=== PATIENT | male | born 1975 | race Two or more races ===

== ENCOUNTER 2023-11-22 09:55 | Emergency (ER) | payer MEDICAID ==
[~2023-11-22] VITALS: Ht 175.3 cm; Wt 96.2 kg
[2023-11-22 10:44] VITALS: BP 116/83; TEMP 98.9
[2023-11-22] MEDS: SODIUM CHLORIDE 0.9% 1,000 ML IV ONE (10:55)
[2023-11-22] MEDS: ACETAMINOPHEN 325 MG TAB PO ONE (10:57)
[2023-11-22] MEDS: DexAMETHasone SOD PHOS 10MG/1ML VIAL INJ IV ONE (10:57)
[2023-11-22] MEDS: KETOROLAC TROMETH 30 MG/ML 1ML VIAL IV ONE (10:58)
[2023-11-22] MEDS: METOCLOPRAMIDE HCL 5MG/ml INJ 2ml VIAL IV ONE (10:58)
[2023-11-22 11:05] VITALS: PULSE 98; RESP 16; O2SAT 93
== END 2023-11-22 11:58 | disposition home or self-care (01) ==
LOC: ER 09:55
DX: G43.909 Migraine, unspecified, not intractable, without status migrainosus (principal)
CPT/HCPCS: 96361; 96374; 96375; 99284; J1100; J1885; J2765; J7030